=== PATIENT | female | born 1970 | race Asian ===

== ENCOUNTER 2017-02-17 18:24 | Emergency (ER) | payer MEDICAID ==
[~2017-02-17] VITALS: Ht 149.9 cm; Wt 50.0 kg
[2017-02-17 19:00] LABS: HEMATOCRIT 41.5 % (34.6-47.8); HEMOGLOBIN 13.8 g/dL (11.7-16.4); WHITE BLOOD COUNT 8.3 x10^3/uL (3.4-10)
[2017-02-17] MEDS ORDERED: OMNIPAQUE 350 MG/ML, 100ML BOTTLE ONE (19:00)
[2017-02-17] MEDS ORDERED: SODIUM CHLORIDE FLUSH 10ML SYR IVF ONE (19:00)
[2017-02-17 19:10] LABS: ASPARTATE AMINO TRANSFERASE 18 U/L (15-37); BLOOD UREA NITROGEN 14 mg/dL (7-18)
[2017-02-17 21:32] VITALS: BP 108/64
== END 2017-02-17 21:51 | disposition home or self-care (01) ==
LOC: ED 21:45
DX: R10.31 Right lower quadrant pain (principal)
CPT/HCPCS: 36415; 74177; 80053; 81001; 83690; 84703; 85025; 99285; Q9967